=== PATIENT | female | born 1950 | race Caucasian/White ===

== ENCOUNTER 2024-09-04 09:57 | Emergency (ER) | payer MEDICARE ==
[2024-09-04] MEDS ORDERED: NEXTERONE 360 MG/200 ML BAG 360 MG/200 ML PLAST..BAG IV ONE (10:35)
[2024-09-04] MEDS ORDERED: Sodium Chloride 0.9% 1000 ML 1,000 ML IV STA (10:42)
[2024-09-04] MEDS ORDERED: EPINEPHRINE ABBOJECT 1 MG/10 ML ONE (10:42)
[2024-09-04] MEDS ORDERED: Sodium Chloride 0.9% 250 ML 250 ML IV ONE (10:42)
[2024-09-04 11:06] VITALS: PULSE 0
--- NOTE | 2024-09-04 11:16 | ERPHSYRPT ---
- History of Present Illness Time Seen by Provider: 09/04/24 10:41 Source: family, EMS Exam Limitations: clinical condition Physician History: 74 years old female with history of lung cancer, chronic respiratory failure on 3 L oxygen is brought in the ER by EMS after she had witnessed fall with arrest. CPR was started immediately. No pulse until 10 minutes into CPR. On EMS arrival patient has asystole. CPR is continued as per ACLS protocol with multiple rounds of epi with return of spontaneous circulation's couple of time for few seconds to minutes, Patient is in PEA on presentation in the ER. Promptly intubated and placed central line. ACLS protocol was followed, given multiple rounds of epi and bicarb with return of spontaneous circulation and patient has A-fib rhythm, given bolus of amiodarone followed by amnio drip. Patient last pulse multiple times, discussed with family in details and they decided to stop CPR. She did not have any spontaneous respiratory effort and no cardiac activity with bedside ultrasound. Patient is pronounced at 10:44 PM Aspirin Treatment Today: unknown Allergies/Adverse Reactions: UNOBTAINABLE Allergy (Unverified 09/04/24 10:09) - Review of Systems All Other Systems: Unable due to condition - Past Medical History Pertinent Past Medical History: Yes Cardiac History: Coronary Artery Disease Respiratory History: COPD Other Medical History: unsure on rest - Past Surgical History Other Surgical History: unsure - Nursing Vital Signs Nursing Vital Signs: Initial Vital Signs Pulse Rate 0 L 09/04/24 10:00 Pain Scale Pain Intensity 0 - Physical Exam Eye Exam: other (Fixed dilated pupils bilateral) Ears, Nose, Throat Exam: dry mucous membranes Neck Exam: normal inspection, supple Respiratory Exam: other (No spontaneous respiratory effort. Bilateral equal breath sounds with bagging.) Cardiovascular Exam: other (Pulseless electrical activity. No palpable pulses. Cap refill delayed.) Gastrointestinal/Abdomen Exam: soft, No distention Back Exam: normal inspection Extremity Exam: normal inspection, other (Abnormal tone) Skin Exam: pale, other (Cold clammy and cyanotic extremities) SpO2 Interpretation: airway management int. SpO2: 72 O2 Delivery: Ambu-Bag Procedures - Central Line Timeout: Performed Central Line Lumen: triple Lumen Size: 7 Yi Central Line Procedure: chlorahexadine prep, sterile drapes applied Central Line Postion: femoral (R) Ultrasound Guided Placement: No Complications: none Central Line Post Position: sutured, good blood return - Intubation Intubation Indications: cardiac arrest, respiratory arrest, airway protection Intubation Method: glidescope Tube Size (cm): 7.5 C-Spine: maintained Endotracheal Tube Confirmation: bilateral breath sounds, good rise & fall of chest, stable or inc of O2 sat Intubation Complications: no complications Performed By: ED Physician Ordered Tests: Active Orders 24 hr Category Date Time Status EKG-ER Only STAT Care 09/04/24 10:42 Completed IV Insertion STAT Care 09/04/24 10:42 Completed NPO (ED) STAT Care 09/04/24 10:42 Completed Lactic Acid Stat Lab 09/04/24 10:42 Completed VBG [VENOUS BLOOD GAS] Stat Lab 09/04/24 10:42 Completed Intubate Patient STAT RT 09/04/24 10:00 Completed Medication Summary Discontinued Medications Generic Name Dose Route Start Last Admin Trade Name Freq PRN Reason Stop Dose Admin Epinephrine HCl Confirm 09/04/24 10:42 Epinephrine 1 Mg/10 Ml Abbj 0.1 Mg/Ml Syr Administered 09/04/24 10:43 Dose 1 mg .ROUTE .STK-MED ONE Amiodarone HCl/Dextrose Confirm 09/04/24 10:35 Nexterone 360 Mg/200 Ml Bag Administered 09/04/24 10:36 Dose 360 mg in 200 mls @ ud IV .STK-MED ONE Sodium Chloride 1,000 mls @ 999 mls/hr 09/04/24 10:42 Sodium Chloride 0.9% 1000 Ml IV 09/04/24 11:42 .Q1H1M STA Sodium Chloride Confirm 09/04/24 10:42 Sodium Chloride 0.9% 250 Ml Administered 09/04/24 10:43 Dose 250 mls @ ud IV .STK-MED ONE Lab/Rad Data: Laboratory Results 09/04/24 09/04/24 Range/Units 10:42 10:42 pO2/FiO2 Ratio 100.0 % VBG pH 6.98 L* (7.32-7.42) VBG pCO2 at Pat Temp 102 H* (42-55) mm/Hg VBG pO2 at Pat Temp 33 (25-40) mm/Hg VBG HCO3 24.0 (22-28) meq/L VBG O2 Sat ([place]) 36.3 L (95-100) VBG Base Excess -9.1 L (-2.0-2.0) VBG Hemoglobin 11.3 VBG Carboxyhemoglobin 2.3 (0.0-6.9) % T HGB POC Potassium 4.4 (3.5-5.1) Lactic Acid 14.3 H (0.4-2.0) - Progress Progress: re-examined Progress Note: 09/04/24 12:02 74 years old female with history of lung cancer, chronic respiratory failure on 3 L oxygen is brought in the ER by EMS after she had witnessed fall with arrest. CPR was started immediately. No pulse until 10 minutes into CPR. On EMS arrival patient has asystole. CPR is continued as per ACLS protocol with multiple rounds of epi with return of spontaneous circulation's couple of time for few seconds to minutes, Patient is in PEA on presentation in the ER. Promptly intubated and placed central line. ACLS protocol was followed, given multiple rounds of epi and bicarb with return of spontaneous circulation and patient has A-fib rhythm, given bolus of amiodarone followed by amnio drip. Patient last pulse multiple times, discussed with family in details and they decided to stop CPR. She did not have any spontaneous respiratory effort and no cardiac activity with bedside ultrasound. Patient is pronounced at 10:44 PM Counseled pt/family regarding: lab results, diagnosis Medical Desision Making - Independent Historian Additional History obtained from: Child, Family, Relative/friend, Flight Operations Manager/EMT - Diagnostic Testing Diagnostic test were ordered, analyzed, and reviewed by me: Yes Radiological Interpretation: Reviewed by me - Risk of complications The pt has a mod risk of morbidity or mortality based on: Need for prescription drug management The pt has a high risk of morbidity or mortality based on: Decision not to resucitate - Departure Departure Disposition: Clinical Impression: Cardiac arrest Condition: Critical Care Time: Yes Critical Care Time(excluding separately billable procedures): Critical 30-74 mins Referrals: Provider,Unknown [Primary Care Provider] - Follow up/PCP as directed
[2024-09-04 11:45] LABS: VBG BASE EXCESS -9.1 (-2.0-2.0); VBG CARBOXYHEMOGLOBIN 2.3 % T HGB (0.0-6.9); VBG HEMOGLOBIN 11.3; VBG O2 SATURATION 36.3 (95-100); VBG POTASSIUM 4.4 (3.5-5.1)
[2024-09-04 11:46] LABS: VBG pH 6.98 (7.32-7.42)
[2024-09-04 12:03] VITALS: O2SAT 72
== END 2024-09-04 13:00 | disposition expired ==
LOC: ED 09:57
DX: I46.9 Cardiac arrest, cause unspecified (principal)
CPT/HCPCS: 31500; 82805; 83605; 93005; 96374; 96375; 99283; 99291; J0171; J0282